=== PATIENT | female | born 1975 | race Asian ===

== ENCOUNTER 2019-12-20 12:51 | Emergency (ER) | payer SELFPAY ==
[2019-12-20 14:08] LABS: ABSOLUTE BASOPHILS # (AUTO) 0.1 10^3/uL (0.0-0.2); ABSOLUTE EOSINOPHILS # (AUTO) 0.2 10^3/uL (0.0-0.6); ABSOLUTE LYMPHOCYTES (AUTO) 1.1 10^3/uL (0.5-4.7); ABSOLUTE MONOCYTES (AUTO) 0.5 10^3/uL (0.1-1.4); ABSOLUTE NEUT (AUTO) 10.4 10^3/uL (1.7-8.2); BASOPHILS % (AUTO) 0.4 % (0-2); EOSINOPHILS % (AUTO) 1.3 % (0-6); HEMATOCRIT 23.2 % (36.0-47.0); MEAN CORPUSCULAR HEMOGLOBIN 27.1 pg (27.0-33.4); MEAN CORPUSCULAR HGB CONC 34.4 g/dL (32.0-36.0); MEAN CORPUSCULAR VOLUME 79 fl (80-97); MONOCYTES % (AUTO) 4.1 % (3-13); PLATELET COUNT 197 10^3/uL (150-450); RED BLOOD COUNT 2.95 10^6/uL (3.72-5.28); SEGMENTED NEUTROPHILS % (AUTO) 85.2 % (42-78); TOTAL CELLS COUNTED % (AUTO) 100 %; WHITE BLOOD COUNT 12.2 10^3/uL (4.0-10.5)
[2019-12-20 14:15] LABS: INTERNATIONAL RATION (INR) 1.06; PROTHROMBIN TIME 13.8 SEC (11.4-15.4)
[2019-12-20 14:16] LABS: PARTIAL THROMBOPLASTIN TIME 35.5 SEC (23.5-35.8)
[2019-12-20 14:20] LABS: ALBUMIN 4.3 g/dL (3.5-5.0); ALKALINE PHOSPHATASE 87 U/L (38-126); ANION GAP 13 (5-19); ASPARTATE AMINO TRANSFERASE 19 U/L (14-36); BILIRUBIN,DIRECT 0.1 mg/dL (0.0-0.4); BILIRUBIN,TOTAL 0.6 mg/dL (0.2-1.3); BLOOD UREA NITROGEN 47 mg/dL (7-20); CALCIUM 9.1 mg/dL (8.4-10.2); CARBON DIOXIDE 24 mmol/L (22-30); CHLORIDE 98 mmol/L (98-107); GLUCOSE 124 mg/dL (75-110); TOTAL PROTEIN 7.7 g/dL (6.3-8.2)
[2019-12-20 14:30] LABS: APPEARANCE,URINE CLEAR; BILIRUBIN,URINE NEGATIVE (NEGATIVE); COLOR,URINE STRAW; GLUCOSE, URINE 50 mg/dL (NEGATIVE); KETONES,URINE NEGATIVE (NEGATIVE); LEUKOCYTE ESTERASE,URINE NEGATIVE (NEGATIVE); NITRITE,URINE NEGATIVE (NEGATIVE); PROTEIN,URINE >=500 mg/dL (NEGATIVE); URINE SPECIFIC GRAVITY 1.007; UROBILINOGEN,URINE NEGATIVE mg/dL (<2.0)
[2019-12-20 14:34] LABS: TROPONIN I 0.1 ng/mL
--- NOTE | 2019-12-20 14:34 | RADIOLOGY REPORT (SQ) ---
EXAM DESCRIPTION: CHEST SINGLE VIEW IMAGES COMPLETED DATE/TIME: 12/20/2019 2:20 pm REASON FOR STUDY: sobr COMPARISON: None. EXAM PARAMETERS: NUMBER OF VIEWS: One view. TECHNIQUE: Single frontal radiographic view of the chest acquired. RADIATION DOSE: NA LIMITATIONS: None. FINDINGS: LUNGS AND PLEURA: No opacities, masses or pneumothorax. No pleural effusion. MEDIASTINUM AND HILAR STRUCTURES: No masses. Contour normal. HEART AND VASCULAR STRUCTURES: Enlarged cardiac silhouette. No overt edema. BONES: No acute findings. HARDWARE: None in the chest. OTHER: No other significant finding. IMPRESSION: Enlarged cardiac silhouette without overt edema. TECHNICAL DOCUMENTATION: JOB ID: [id number] 2010 [employer]- All Rights Reserved Reading location - IP/workstation name: [email or web address]
[2019-12-20 15:04] LABS: A TYPE INFLUENZA AG NEGATIVE (NEGATIVE); B INFLUENZA AG NEGATIVE (NEGATIVE)
[2019-12-20] MEDS ORDERED: LABETALOL HCL INJ 20 MG/4 ML DISP.SYRIN IV ONE (16:06)
[2019-12-20] MEDS ORDERED: FUROSEMIDE INJ/PF 40 MG/4 ML SDV IV ONE (16:06)
[2019-12-20] MEDS ORDERED: POTASSI CL 20 MEQ/50 ML RIDER 20 MEQ/50 ML RTUPB IV ONE (16:07)
[2019-12-20] MEDS ORDERED: POTASSIUM CHLORIDE 10 MEQ TABLET.ER PO ONE (16:08)
[2019-12-20] MEDS ORDERED: NITROGLYCERIN 2% OINTMENT 1 GM PACKET TP ONE (16:08)
[2019-12-20] MEDS ORDERED: HYDRALAZINE HCL INJ/PF 20 MG/1 ML SDV IV ONE (17:04)
[2019-12-20] MEDS ORDERED: NICARDIPINE HCL RTU, ISO-OS 20 MG/200 ML RTUINJ IV PRN (17:13)
[2019-12-20] MEDS ORDERED: AMLODIPINE BESYLATE 10 MG TABLET PO ONE (17:52)
[2019-12-20] MEDS ORDERED: METOPROLOL SUCCINATE 50 MG TAB.SR.24H PO ONE (17:53)
[2019-12-20] MEDS ORDERED: ASPIRIN 81 MG TABLET, CHEWABLE PO ONE (18:08)
[2019-12-20 18:53] VITALS: BP 178/126
--- NOTE | 2019-12-20 18:57 | ER Document Report ---
Entered by JIM IZAGUIRRE SCRIBE 12/20/19 0271 Acting as scribe for:BLAYNE MORGAN MD ED Respiratory Problem - General Chief Complaint: Breathing Difficulty Stated Complaint: DIFFICULTY BREATHING Time Seen by Provider: 12/20/19 13:03 Information source: Patient Notes: This 44 year old female patient presents to the emergency department today with complaints of shortness of breath and a cough for the past x1 week. Patient states she is short of breath when lying down at night and she has to sit up to breath normally. Patient states she had pneumonia x5 months ago. Patient states she moved to [place] x2 months ago from [place] and has run out of 2/3 of her prescriptions for hypertension. Patient states she has stage 4 acute renal failure and has not been in contact with anyone suspected of covid. Patient denies any fever or chills. - Related Data Allergies/Adverse Reactions: iv dye Allergy (Uncoded 12/20/19 14:11) Past Medical History - General Information source: Patient - Social History Smoking Status: Current Every Day Smoker Cigarette use (# per day): Yes Lives with: Family Family History: Reviewed & Not Pertinent - Past Medical History Cardiac Medical History: Reports: Hx Hypertension Pulmonary Medical History: Reports: Hx Pneumonia - July 2019. Renal/ Medical History: Reports: Other - Acute renal failure stage 4. Review of Systems - Review of Systems Constitutional: See HPI. denies: Chills, Fever EENT: No symptoms reported Cardiovascular: No symptoms reported Respiratory: See HPI, Cough, Short of breath Gastrointestinal: No symptoms reported Genitourinary: No symptoms reported Female Genitourinary: No symptoms reported Musculoskeletal: No symptoms reported Skin: No symptoms reported Hematologic/Lymphatic: No symptoms reported Neurological/Psychological: No symptoms reported -: Yes All other systems reviewed and negative Physical Exam - Vital signs Vitals: Temp Resp 98.9 F 24 H 12/20/19 13:00 12/20/19 13:00 - General General appearance: Appears well, Alert - HEENT Head: Normocephalic, Atraumatic Eyes: Normal Pupils: PERRL - Respiratory Chest status: Nontender Breath sounds: Nonproductive cough, Other - Diminished breath sounds in bases bilaterally.. No: Wheezing Chest palpation: Normal - Cardiovascular Rhythm: Regular Heart sounds: Normal auscultation Murmur: No - Abdominal Inspection: Normal Distension: No distension Bowel sounds: Normal Tenderness: Nontender - Extremities General upper extremity: Normal inspection. No: Edema General lower extremity: Edema - 2+ edema bilaterally. - Neurological Neuro grossly intact: Yes Cognition: Normal Orientation: AAOx4 - Psychological Associated symptoms: Normal affect, Normal mood - Skin Skin Temperature: Warm Skin Moisture: Dry Skin Color: Normal Course - Re-evaluation Re-evalutation: 12/20/19 18:39 Patient has diuresed and her blood pressure has improved. Patient is less short of breath at this time. - Vital Signs Vital signs: Temp Pulse Resp BP Pulse Ox 98.9 F 16 163/114 H 97 12/20/19 13:00 12/20/19 17:00 12/20/19 17:00 12/20/19 16:46 - Laboratory Result Diagrams: 12/20/19 13:35 12/20/19 13:35 Laboratory results interpreted by me: 12/20/19 12/20/19 12/20/19 13:35 13:35 13:35 WBC 12.2 H RBC 2.95 L Hgb 8.0 L Hct 23.2 L MCV 79 L RDW 17.0 H Lymph % (Auto) 9.0 L Absolute Neuts (auto) 10.4 H Seg Neutrophils % 85.2 H D-Dimer 3.20 H Sodium 135.3 L Potassium 3.0 L* BUN 47 H Creatinine 4.62 H Est GFR ( Amer) 12 L Est GFR (MDRD) Non-Af 10 L Glucose 124 H NT-Pro-B Natriuret Pep Urine Protein Urine Glucose (UA) 12/20/19 12/20/19 13:35 13:35 WBC RBC Hgb Hct MCV RDW Lymph % (Auto) Absolute Neuts (auto) Seg Neutrophils % D-Dimer Sodium Potassium BUN Creatinine Est GFR ( Amer) Est GFR (MDRD) Non-Af Glucose NT-Pro-B Natriuret Pep 34050 H Urine Protein >=500 H Urine Glucose (UA) 50 H Hypokalemia 3.0 and an elevated BNP of 25,200. Patient has stage IV chronic renal disease and has relocated from [place] 2 months ago to [place]. Patient has no medical doctor or is being followed by any urologist at this time. 12/20/19 18:49 Discussed with patient that she has an elevated d-dimer 3.2 which may represent that she is having a DVT or blood clot in her lung. Patient refused to have further studies and states that she just wants to go home. Patient understands the risk that she is taking. Discussed with patient that signing out AGAINST MEDICAL ADVICE means that she understands the risk of graft or loss of life or limb revision and and that the hospital not responsible for her condition when she lays. I advised her to return to the emergency department as soon as possible if she is having further problems. I will refer patient to sr. social media & mobile manager for further evaluation. - Diagnostic Test Radiology reviewed: Image reviewed, Reports reviewed Radiology results interpreted by me: 12/20/19 18:41 Cardiomegaly. Increased vascular markings but no overt failure per radiologist. - EKG Interpretation by Me Additional EKG results interpreted by me: 12/20/19 18:41 Twelve-lead EKG shows sinus rhythm rate of 97 left atrial abnormality. Discharge - Discharge Clinical Impression: Chronic renal failure, stage 4 (severe), Accelerated hypertension with diastolic congestive heart failure, NYHA class 3, Hypokalemia, Elevated troponin Condition: Critical Disposition: AGAINST MEDICAL ADVICE Additional Instructions: Hypokalemia You have an abnormally decreased level of serum potassium. Hypokalemia may cause weakness, fatigue, or heart rhythm abnormalities. Sometimes there are no symptoms at all. Usually, low serum potassium is due to taking diuretics (water pills). It can also be due to excessive vomiting or diarrhea. If no obvious cause is evident, further evaluation will be necessary. Treatment is usually oral potassium supplements. Take these exactly as prescribed. You may also want to select foods which are naturally high in pota ssium -- fruits (such as bananas, cantaloupe, grapes, oranges, prunes, tomatoes), fresh vegetables (potatoes, spinach, beans, peas), orange or tomato juice, tomato pasta sauce, milk, fish (halibut, tuna, salmon, faisal) A follow-up blood test is usually performed to assure that the potassium is returning to normal. Call the physician if you suffer severe weakness, muscle twitching or cr amping, palpitations (pounding or irregular heartbeat), or any other new or alarming symptoms.Kidney Failure When your kidneys no longer filter the blood adequately, we call this "kidney failure." While kidney failure can happen suddenly, usually it's the result of many years of slow damage. Kidneys can be injured by many different medical problems including infections, diabetes, high blood pressure, kidney stones, drug toxicity, and immune reactions. The symptoms of kidney failure do not develop until most of the normal kidney tissue has been lost. Early kidney failure usually has no symptoms. As it gets worse, symptoms can include weakness, confusion, high blood pressure, swelling, nausea, anemia, and itching. The seriousness of kidney failure is determined by measuring kidney function tests such as BUN or creatinine. The cause of kidney failure may be obvious from the medical history, but occasionally requires special tests such as an angiogram or kidney biopsy. Kidney failure can cause high blood pressure, and uncontrolled hypertension damages kidneys. Good control of blood pressure is important. If you have diabetes, good blood sugar control helps prevent further kidney damage. Fluid retention can be monitored by checking your weight daily. It's best to eat a diet low in protein, potassium, and salt. When kidney failure becomes severe, dialysis or kidney transplant may be required. Call the doctor or return if you develop significant weakness, repeated vomiting, severe lightheadedness, confusion, severe headache, or other serious change in your health. Congestive Heart Failure You have been diagnosed as having congestive heart failure (CHF). CHF occurs when the heart is unable to pump blood efficiently, leading to fluid buildup in the veins and lungs. Typical symptoms are swelling of the legs, shortness of breath on minor exertion, and fatigue. CHF is treated with salt restriction, medicine to eliminate excess water a nd salt from the body, and medication to help the heart contract more efficiently. Eliminate added salt and salty foods in your diet. Decrease your activity until excess fluid has been eliminated. It will also be helpful to raise the head of your bed so you can sleep more easily. Keep a daily record of your weight. This will help your physician monitor your progress. Once extra water has been eliminated, light aerobic exercise daily -- such as walking -- will be helpful (unless your physician has told you to restrict activity for other reasons). Be sure to follow up with the physician as instructed. Contact the doctor at once if you worsen in any way. Prescriptions: Hydralazine HCl [Apresoline 25 mg Tablet] 3 tab PO TID #270 tablet Furosemide [Lasix 80 mg Tablet] 80 mg PO QAM #30 tab Metoprolol Succinate 100 mg PO BID #60 tab.er.24h Amlodipine Besylate [Norvasc 5 mg Tablet] 2 tab PO DAILY #60 tablet Forms: Elevated Blood Pressure Referrals: Andrés HAWKINS MD [ACTIVE STAFF] - Follow up tomorrow I personally performed the services described in the documentation, reviewed and edited the documentation which was dictated to the scribe in my presence, and it accurately records my words and actions.
--- NOTE | 2019-12-20 19:57 | EKG REPORT ---
SEVERITY:- ABNORMAL ECG - SINUS RHYTHM PROBABLE LEFT ATRIAL ABNORMALITY NONSPECIFIC ST-T CHANGES- INFERIOR LEADS : Confirmed by: Mode Rodríguez MD 20-Dec-2019 19:57:06
== END 2019-12-20 19:11 | disposition left against medical advice (07) ==
LOC: ER 12:51
DX: E87.6 Hypokalemia (principal); R79.89 Other specified abnormal findings of blood chemistry; I13.0 Hypertensive heart and chronic kidney disease with heart failure and stage 1 through stage 4 chronic kidney disease, or unspecified chronic kidney disease; I50.30 Unspecified diastolic (congestive) heart failure; N18.4 Chronic kidney disease, stage 4 (severe); R06.02 Shortness of breath; R05 Cough; R06.00 Dyspnea, unspecified; F17.210 Nicotine dependence, cigarettes, uncomplicated; Z20.828 Contact with and (suspected) exposure to other viral communicable diseases; Z91.041 Radiographic dye allergy status
CPT/HCPCS: 93005; 99285; 96375; 96365; 96366; 36415; 87040; 87070; 87880; 85025; 85610; 85730; 87635; 80053; 81001; 84484; 85379; 87804; 83880; 71045; 93010; J1940; J0360; J3490; J3480